=== PATIENT | female | born 1965 | race Caucasian/White ===

== ENCOUNTER 2020-12-23 08:24 | Outpatient (CLI) | payer BC, SELFPAY | END 2020-12-23 08:25 | disposition home or self-care (01) | LOC: ANHSURGERY 08:26 | PROVIDERS: PCP Internal Medicine; Visit Provider Urology | DX: N39.3 Stress incontinence (female) (male) (principal); Z01.818 Encounter for other preprocedural examination | CPT/HCPCS: 87086; 87088 ==

== ENCOUNTER → 2020-12-24 00:30 | Outpatient (CLI) | payer BC, SELFPAY ==
[2020-12-24 18:19] LABS: SARS-CoV-2 RNA PCR Negative
== END ==
PROVIDERS: PCP Internal Medicine; Visit Provider Urology
DX: Z01.812 Encounter for preprocedural laboratory examination (principal); Z20.822 Contact with and (suspected) exposure to COVID-19
CPT/HCPCS: C9803; U0003; U0005

== ENCOUNTER 2020-12-27 00:06 | Day surgery (SDC) | payer BC, SELFPAY ==
[2020-12-22 13:57] VITALS: BMI 29.2
--- NOTE | 2020-12-24 08:45 | P.HP_ITS ---
H&P: HPI History of Present Illness Date/Time: 12/24/20 08:45 Chief Complaint: Stress incontinence Narrative: Jenny Omalley is a 55 year old female She has stress urinary incontinence and desires correction Review of Systems Review of Systems: All systems reviewed & are unremarkable except as noted in HPI and below [facility] Family History Family History (Updated 12/24/20 @ 08:46 by Radames Charles MD) Other Diabetes mellitus Hypertension Social History Social History Smoking status: Never smoker Spiritual care concerns: No Meds Home Medications and Allergies Home Medications Medication Instructions Recorded Confirmed Type carbamazepine 200 mg PO BID 12/22/20 12/22/20 History cholecalciferol (vitamin D3) 50 mcg PO DAILY 12/22/20 12/22/20 History [Vitamin D3] clonazepam 1 mg PO BID 12/22/20 12/22/20 History ferrous sulfate 325 mg PO DAILY 12/22/20 12/22/20 History haloperidol 5 mg PO HS 12/22/20 12/22/20 History meloxicam 15 mg PO DAILY 12/22/20 12/22/20 History multivitamin [Daily Multivitamin] 1 tablet PO DAILY 12/22/20 12/22/20 History temazepam 30 mg PO HS 12/22/20 12/22/20 History Allergies Allergy/AdvReac Type Severity Reaction Status Date / Time Sulfa (Sulfonamide Allergy Severe Hives Verified 12/22/20 13:51 Antibiotics) Exam Const: General: cooperative, healthy appearing and comfortable HENMT: Head: normal to inspection Eyes: General: appearance normal, both eyes and all related structures Resp: Effort & Inspection: normal respiratory effort and able to speak in complete sentences GI: Inspection: normal to inspection Skin: General skin exam: normal color and no rashes or lesions noted Neuro: General: oriented to person, oriented to place and oriented to time Assessment and Plan Assessment and plan (1) YULIANA (stress urinary incontinence, female): Code(s): N39.3 - Stress incontinence (female) (male) Status: Acute Assessment and Plan: Urethral sling
--- NOTE | 2020-12-27 07:24 | WPDHPUPDATE1 ---
History and Physical Update Update Date/Time: 12/27/20 07:24 History and Physical has been reviewed, including an updated exam of the patient. There are NO changes in the patient's condition. Risks, benefits, and alternatives have been discussed and questions answered. Patient agrees to proceed with procedure.
[2020-12-27 08:42] VITALS: BP 129/81; PULSE 71; RESP 16; TEMP 36.2; O2SAT 100
--- NOTE | 2020-12-27 09:01 | WPDANESEPPF ---
Anes - Initial Pre Proc Eval Procedure: Operation Date: 12/27/20 10:30 Proposed Procedures p Urethral Sling - Radames Charles MD Date/Time: 12/27/20 09:01 Surgeon: Radames Charles MD Pre Op Diagnosis: Stress Incontinence Patient Data Age: 55 Gender: F Height: 1.6 m Weight: 75.8 kg Last Vital Signs Temp 36.2 C L 12/27/20 08:42 Pulse 71 12/27/20 08:42 Resp 16 12/27/20 08:42 BP 129/81 12/27/20 08:42 Pulse Ox 100 12/27/20 08:42 Allergies Allergy/AdvReac Type Severity Reaction Status Date / Time Sulfa (Sulfonamide Allergy Severe Hives Verified 12/22/20 13:51 Antibiotics) Home Medications Medication Instructions Recorded Confirmed Type carbamazepine 200 mg PO BID 12/22/20 12/22/20 History cholecalciferol (vitamin D3) 50 mcg PO DAILY 12/22/20 12/22/20 History [Vitamin D3] clonazepam 1 mg PO BID 12/22/20 12/22/20 History ferrous sulfate 325 mg PO DAILY 12/22/20 12/22/20 History haloperidol 5 mg PO HS 12/22/20 12/22/20 History meloxicam 15 mg PO DAILY 12/22/20 12/22/20 History multivitamin [Daily Multivitamin] 1 tablet PO DAILY 12/22/20 12/22/20 History temazepam 30 mg PO HS 12/22/20 12/22/20 History Patient hx anesthesia problems: none Family hx anesthesia problems: none PMFSH Past Medical History Medical History (Updated 12/24/20 @ 09:16 by Richi Palma DO) Bipolar disorder Depression Family History Family History (Updated 12/24/20 @ 08:46 by Radames Charles MD) Other Diabetes mellitus Hypertension Social History Social History Smoking status: Never smoker Living arrangements: with family Spiritual care concerns: No Anes - Eval Final PreProcedure Day of Procedure 12/27/20 09:01 Patient weight: overweight Heart: regular rate and rhythm Lungs: clear to auscultation and normal air movement Airway: Mallampati scale class III Neurological: alert and oriented Last oral intake: >/= 8 hours ASA classification: II Emergent: no Anesthetic plan: proceed Anesthesia type and monitoring: general GIVS and standard monitoring Informed Consent: The patient's anesthetic plan and its attendant risks and benefits were discussed with the patient/family/POA. Questions were solicited and answers provided to the satisfaction of the patient/family/POA.
[2020-12-27] MEDS: LACTATED RINGERS 1,000 ML 30 ML IV CONT ×2 (09:08→11:22)
[2020-12-27 09:14] LABS: Hematocrit 39.6 % (37.0-47.0); Hemoglobin 13.4 g/dL (12.0-15.0)
--- NOTE | 2020-12-27 10:13 | WPDHPUPDATE1 ---
History and Physical Update Update Date/Time: 12/27/20 10:13 History and Physical has been reviewed, including an updated exam of the patient. There are NO changes in the patient's condition. Risks, benefits, and alternatives have been discussed and questions answered. Patient agrees to proceed with procedure.
[2020-12-27] MEDS: ceFAZolin 2 GM/D5W 50 ML 2 GM/50 ML BAG IVPB (10:41)
[2020-12-27] MEDS: BUPIVACAINE/EPINEPHRINE 0.25% 50 ML VIAL 10 ML INFILTRATE (11:03)
--- NOTE | 2020-12-27 11:08 | SUR.OPER ---
MESH AYUSH MCBRIDE, LOT [id number], EXP 2023-06-23. VAGINAL
[2020-12-27 11:22] VITALS: BP 130/78; PULSE 71; O2SAT 100
--- NOTE | 2020-12-27 11:22 | PM.PROC ---
Procedure Note - Detailed Date of procedure: 12/27/20 Pre-op diagnosis: Stress Incontinence Stress urinary incontinence Post-op diagnosis: same Procedure performed: Transobturator Mid-urethral sling Cystoscopy Description of procedure: Anesthesia: Mac/local This is a patient with confirmed stress urinary incontinence. She desires correction. She understands the risks of bleeding, infection, damage to the urinary tract, lack of cure of stress incontinence, recurrence of stress incontinence, postoperative voiding dysfunction including incontinence and retention, need for ancillary procedures to loosen remove the sling, postoperative voiding dysfunction including retention and overactive bladder, hip and leg pain, dyspareunia, mesh related complications including exposure and extrusion. She agrees to proceed. She understands it will not help overactive bladder symptoms if present. She was correctly identified and informed consent obtained. She is brought to the operating room. She was given appropriate anesthesia. She was placed in the dorsal lithotomy position. All pressure points were padded. She was given appropriate perioperative antibiotics and a time-out performed. A Padron catheter is placed. I marked out the thigh incisions anesthetize the skin and made those incisions. I anesthetized the anterior vaginal wall over the mid urethra. I made a 1 cm incision. I dissected out laterally taking great care not to injure the urethra or the vaginal wall. Passed the helical trocars 1st on the left and then on the right from the thigh incision towards the vaginal incision. Sling was connected to the trocars and brought out through the thigh incision. I tensioned the sling appropriately. I cut and removed the plastic sheaths. I closed the incision with 2 0 Vicryl. I then performed cystoscopy. There was no surgical artifact or abnormalities inside the bladder. The urethra was normal without surgical artifact. I cut the excess sling material. I closed the incisions with glue. She was awakened and transferred to the PACU in stable condition. Implants: Mid urethral sling Surgeon: Radames Charles MD Drains: No Packing: No Pathology: none sent Complications: No immediate complications Condition: stable Disposition: PACU
[2020-12-27 11:50] VITALS: BP 127/89; PULSE 72
== END 2020-12-27 12:09 | disposition home or self-care (01) ==
PROVIDERS: Anesthesiology; PCP Internal Medicine; Visit Provider Urology
PROC: (CPT 57288; principal; 2020-12-27 10:30)
DX: N39.3 Stress incontinence (female) (male) (principal); F31.9 Bipolar disorder, unspecified
CPT/HCPCS: 57288; 36415; 85014; 85018; A9270; C1771; J0690; J2250; J2405; J2704; J3010; J7030; J7120